=== PATIENT | female | born 1940 | race Caucasian/White ===

== ENCOUNTER 2017-01-31 09:34 | Outpatient (CLI) | payer MEDICARE, BC | END 2017-01-31 09:37 | LOC: D.MAMMO 09:34 | DX: Z12.31 Encounter for screening mammogram for malignant neoplasm of breast (principal) ==

== ENCOUNTER 2017-02-20 22:05 | Inpatient (IN) | payer MEDICARE, BC ==
[~2017-02-20] VITALS: Ht 160 cm; Wt 58.1 kg
[2017-02-20 23:32] LABS: HEMATOCRIT 32.1 % (36.0-48.0); HEMOGLOBIN 10.7 g/dL (12-16); LYMPHOCYTES 6.6 % (15-50); MCH 30.7 pg (26.0-34.0); MCHC 33.3 g/dL (31.0-37.0); MEAN PLATELET VOLUME 9.4 fL (7.4-10.4); NEUTROPHILS 83.4 % (40-80); PLATELET COUNT 237 10x3/uL (130-400); RBC 3.49 10x6/uL (4.00-5.40); RDW 15.6 % (11.5-14.5); WBC 11.8 10x3/uL (4.8-10.8)
[2017-02-20 23:44] LABS: INR 0.95 (0.85-1.17); PROTIME 12.5 SECONDS (11.6-15.0)
[2017-02-20 23:47] LABS: ALBUMIN 3.3 g/dL (3.4-5.0); ANION GAP 11.7 mmol/L (8-16); BILIRUBIN - TOTAL 0.3 mg/dL (0.2-1.3); CALCIUM 8.3 mg/dL (8.5-10.1); CREATININE - SERUM 1.8 mg/dL (0.6-1.3); MAGNESIUM - SERUM 1.6 mg/dL (1.8-2.4); POTASSIUM - SERUM 3.7 mmol/L (3.5-5.1); PROTEIN - SERUM 6.1 g/dL (6.4-8.2)
[2017-02-20 23:58] LABS: APTT 27.1 SECONDS (22.8-39.4)
--- NOTE | 2017-02-21 02:00 | NUR ---
RECIEVED PT FROM ER VIA BED, TRANSFERED WITH BOARD, ASSESSMENT, HISTORY AND MED REC COMPLETED, ORIENTED TO ROOM AND CALL LIGHT, BED LOW, ALARM ON, SR'S UP, CL IN REACH, WILL MONITOR
--- NOTE | 2017-02-21 02:05 | NUR ---
WEDGER INFORMED OF THE NEED FOR BUCKS BOOT TO SET UP ORDERED TRACTION
[2017-02-21] MEDS ORDERED: GLEEVEC100 MG PO (02:08)
[2017-02-21] MEDS ORDERED: BAYER CHEWABLE81 MG PO (02:08)
[2017-02-21] MEDS ORDERED: ZOLOFT50 MG PO (02:09)
[2017-02-21] MEDS ORDERED: PRINIVIL20 MG PO (02:09)
[2017-02-21] MEDS ORDERED: TOPROL XL50 MG PO (02:11)
[2017-02-21] MEDS ORDERED: NITROSTAT0.4 MG SL (02:11)
[2017-02-21] MEDS ORDERED: FOLIC ACID1 MG PO (02:12)
[2017-02-21] MEDS ORDERED: PROTONIX40 MG PO (02:12)
[2017-02-21] MEDS ORDERED: BENADRYL25 MG PO (02:13)
--- NOTE | 2017-02-21 03:00 | NUR ---
RESTING WITH EYES CLOSED, NO DISTRESS NOTED, FALL PRECAUTIONS IN PLACE, CL IN REACH
--- NOTE | 2017-02-21 03:20 | NUR ---
PRN DILAUDID GIVEN FOR C/O HIP PAIN 02/18, PAPI WELL, CL IN REACH
--- NOTE | 2017-02-21 03:35 | NUR ---
5LB BUCKS TRACTION APPLIED PER ORDERS, PAPI WELL, DENIES NEEDS, CL IN REACH
[2017-02-21 04:01] VITALS: BP 158/77; BMI 22.9
[2017-02-21 06:59] LABS: APPEARANCE HAZY (CLEAR); COLOR YELLOW (YELLOW); LEUKOCYTE ESTERASE TRACE (NEGATIVE); PROTEIN NEGATIVE (NEGATIVE)
[2017-02-21 07:00] LABS: BILIRUBIN NEGATIVE (NEGATIVE); GLUCOSE NEGATIVE (NEGATIVE); KETONE NEGATIVE (NEGATIVE); NITRITE POSITIVE (NEGATIVE); UROBILINOGEN NORMAL (NORMAL)
[2017-02-21 07:01] LABS: BACTERIA MANY /hpf (NONE SEEN); EPITHELIAL CELLS 0-5 /hpf (0-5); HYALINE CAST OCC /lpf (NONE SEEN); MUCUS <1+ /lpf (NONE SEEN); RED CELLS - URINE >50 /hpf (0-5)
--- NOTE | 2017-02-21 07:25 | NUR ---
REPORT RECEIVED FROM ICE CREAM FREEZER HELPER NURSE. CALL LIGHT IN REACH.
--- NOTE | 2017-02-21 09:05 | NUR ---
ASSESSMENT COMPLETED. SCD TO RLE. BED ALARM TURNED ON. DILAUDID MAPLE PRODUCTS MAKER INITIATED AND BOLUS ADMINISTERED. WITNESSED PER YU WORLEY. IN ROOM. CALL LIGHT IN REACH. WILL CONTINUE WITH PLAN OF CARE.
[2017-02-21 09:17] VITALS: BP 173/68
--- NOTE | 2017-02-21 10:16 | NUR ---
* Is the patient Alert and Oriented? Yes 0 * How many steps to enter\exit or inside your home? 3 0 * PCP [facility] 0 * [facility]acy [facility] [address] [facility] * Preadmission Environment Home with Family 0 * ADLs Independent 0 * Equipment None 0 * List name and contact numbers for known caregivers / representatives who currently or will assist patient after discharge: DAVID GUERRERO (PARTNER) [phone] 0 * Community resources currently utilized None 0 * Additional services required to return to the preadmission environment? Yes 0 * Can the patient safely return to the preadmission environment? Yes 0 * Has this patient been hospitalized within the prior 30 days at any hospital? No 0 Grand Total: 0 Patient Name: YAEL BAGLEY Admission Status: ER Accout number: [id number] Admission Date: 02-20-2017 : 1940 Admission Diagnosis: Attending: HENRY Current LOS: 1 Anticipated DC Date: Planned Disposition: Primary Insurance: MEDICARE A & B Discharge Planning Comments: CM met with patient and her partner (David Guerrero) and son ( Emre Guerrero) Patient states that she is an independent person who lives at home with the above. Her home is a safe environment to return too, but she feel like she will needs in patient rehab to get stronger before she goes home. She currently does not have any equipment at home and will need a walker. CM will continue to follow and assist as needed. PCP: [facility] ([phone])-Partner Emre Guerrero ([phone]) Son Senior Account Director: Henny Rodriguez
[2017-02-21 10:27] LABS: BASOPHILS 0.1 % (0-2); EOSINOPHILS 1.2 % (0-7); HEMATOCRIT 34.4 % (36.0-48.0); IMMATURE GRANULOCYTES 0.3 % (0-5); MCH 30.3 pg (26.0-34.0); MEAN PLATELET VOLUME 9.2 fL (7.4-10.4); MONOCYTES 7.3 % (2-11); NEUTROPHILS 86.1 % (40-80); PLATELET COUNT 198 10x3/uL (130-400); RBC 3.63 10x6/uL (4.00-5.40); RDW 15.5 % (11.5-14.5); WBC 14.3 10x3/uL (4.8-10.8)
[2017-02-21 10:31] LABS: MCV 94.8 fL (80.0-100.0)
--- NOTE | 2017-02-21 10:42 | NUR ---
Rehab Note- Acute Rehab Prescreen order received. The patient is awaiting surgery at this time. Will follow the patient and plan for [facility] IRF stay when ready to transfer from the acute hospital. Thank you for this referral! Sheryl Bermeo RN Clinical Liaison, [facility] Rehab
[2017-02-21 11:02] VITALS: Ht 160 cm; Wt 58.1 kg
[2017-02-21 11:54] VITALS: BP 148/69
--- NOTE | 2017-02-21 11:59 | NUR ---
AM MEDS ADMINISTERED. CALL LIGHT IN REACH.
--- NOTE | 2017-02-21 13:25 | NUR ---
PATIENT IS LAYING IN BED. DIRECTOR OF REVENUE CYCLE MANAGEMENT IN ROOM PUTTING ON COOK FISH AND CHIPS. PATIENT REQUESTED A CUP OF ICE BUT DENIES FURTHER NEEDS AT THIS TIME. BROUGHT PATIENT A CUP OF ICE. NO SIGNS OF DISTRESS NOTED. AT BEDSIDE. BED IN LOWEST POSITION, CALL LIGHT IN REACH. BED RIALS UP X'S 2.
--- NOTE | 2017-02-21 14:13 | NUR ---
PT IN ROOM TO ADJUST TRACTION WHICH IS ON FLOOR AT THIS TIME.
[2017-02-21 15:31] VITALS: BP 153/76
--- NOTE | 2017-02-21 16:20 | NUR ---
DENIES NEEDS AT THIS TIME. FAMILY IN ROOM. CALL LIGHT IN REACH.
--- NOTE | 2017-02-21 18:13 | NUR ---
NO CHANGES IN INIITAL ASSESSMENT. 5 LBS TRACTION TO LLE AND SCD TO RLE. BED ALARM ON. FAMILY IN ROOM. CALL LIGHT IN REACH. WILL CONTINUE WITH PLAN OF CARE.
[2017-02-21 23:11] VITALS: BP 159/68
[2017-02-22] VITALS: BP 167/76
--- NOTE | 2017-02-22 02:01 | NUR ---
0122) C/O NAUSEA NO EMESIS.ZOFRAN 4MG GIVEN IV ORDERED FOR RELIEF.LEFT LEG REMAINS IN 5LBS. BUCKS TX.SOME SHORTENING AND INTERNAL ROTATION OBSERVED.FOOT PINK AND WARM PEDAL PULSE PRESENT. WILL CONTINUE TO MONITOR FOR ANY CHGES. IN NEUROVASCULAR STATUS AND FOLLOW CURRENT PLAN OF CARE
[2017-02-22 04:00] VITALS: BP 158/70
[2017-02-22 05:06] LABS: BASOPHILS 0.1 % (0-2); HEMATOCRIT 35.3 % (36.0-48.0); HEMOGLOBIN 11.4 g/dL (12-16); IMMATURE GRANULOCYTES 0.4 % (0-5); MCH 30.4 pg (26.0-34.0); MCHC 32.3 g/dL (31.0-37.0); MCV 94.1 fL (80.0-100.0); MEAN PLATELET VOLUME 10.6 fL (7.4-10.4); MONOCYTES 4.9 % (2-11); NEUTROPHILS 90.6 % (40-80); RBC 3.75 10x6/uL (4.00-5.40); RDW 15.4 % (11.5-14.5); WBC 17.8 10x3/uL (4.8-10.8)
[2017-02-22 05:26] LABS: PLATELET COUNT 242 10x3/uL (130-400)
[2017-02-22 05:49] LABS: ALBUMIN 2.9 g/dL (3.4-5.0); BILIRUBIN - TOTAL 0.5 mg/dL (0.2-1.3); CALCIUM 7.9 mg/dL (8.5-10.1); CREATININE - SERUM 1.5 mg/dL (0.6-1.3); PROTEIN - SERUM 6.1 g/dL (6.4-8.2)
--- NOTE | 2017-02-22 07:20 | NUR ---
REPORT RECEIVED FROM MIDDLE SCHOOL TEACHER NURSE. CALL LIGHT IN REACH.
[2017-02-22 07:58] VITALS: BP 166/64
--- NOTE | 2017-02-22 08:02 | NUR ---
ASSESSMENT COMPLETED. ZOFRAN IVP PER C/O NAUSEA. AM MEDS ADMINISTERED. SCD TO RLE. 5 LBS BEY'S TRACTION TO LLE. BED ALARM ON. TAKEN OFF OF BEDPAN AND CLEANED UP. NORMAL BM NOTED. KATHLEEN PASTRANA, IN ROOM TO SPEAK WITH PATIENT. CALL LIGHT IN REACH. WILL CONTINUE WITH PLAN OF CARE.
--- NOTE | 2017-02-22 09:11 | NUR ---
CHRISTOPHERHIN IVPB PER ORDER. DENIES NEEDS AT THIS TIME. CALL LIGHT IN REACH.
--- NOTE | 2017-02-22 11:11 | NUR ---
URINE SAMPLE COLLECTED FROM BENNETT AND SENT TO LAB FOR TESTING.
[2017-02-22 12:06] VITALS: BP 144/72
--- NOTE | 2017-02-22 13:00 | NUR ---
DR. PERRY AND CASINO CHANGE ATTENDANT IN ROOM TO SEE PATIENT.
--- NOTE | 2017-02-22 14:10 | NUR ---
LEVAQUIN 500 MG IVPB. CALL LIGHT IN REACH.
--- NOTE | 2017-02-22 15:15 | NUR ---
PATIENT ALERT IN BED. NO SIGNS OF DISTRESS NOTED. LUCI, NURSE AID AT BEDSIDE. SIDE RAILS UP X2. BED IN LOW POSITION. CALL LIGHT IN REACH.
[2017-02-22 15:36] VITALS: BP 172/87
--- NOTE | 2017-02-22 15:52 | NUR ---
RESTING WITH EYES CLOSED. RESP EVEN AND UNLABORED. CALL LIGHT IN REACH.
--- NOTE | 2017-02-22 17:35 | NUR ---
CONSENT FORMS SIGNED AND WITNESSED.
--- NOTE | 2017-02-22 18:10 | NUR ---
NO CHANGES IN INITIAL ASSESSMENT. CALL LIGHT IN REACH. SCDs ON. BED ALARM ON. VISITORS AT BEDSIDE. WILL CONTINUE WITH PLAN OF CARE.
--- NOTE | 2017-02-22 19:00 | NUR ---
PATIENT IN BED WATCHING TV. HOB 30 DEGREES. AAOX4. RR EVEN AND UNLABORED. 0 S/S OF DISTRESS. STATES PAIN IS A 3/10, BUT SHE DOES NOT WANT TO USE THE PAIN MEDICATION BECAUSE IT MAKES HER NAUSEATED. IV TO LEFT AC PATENT WITH NO REDNESS OR SWELLING. BENNETT SECURED WITH STATLOCK AND DRAINING TO GRAVITY. BEY'S TRACTION TO LLE AND SCD TO RLE. TELEMETRY ON. BED ALARM ON. SISTER AT BEDSIDE. SRX2. BED LOW. CALL LIGHT WITHIN REACH.
[2017-02-22 20:00] VITALS: BP 176/76
--- NOTE | 2017-02-22 21:00 | NUR ---
PATIENT'S BP 176/76. NO PRN MEDS OR BP MEDS UNTIL AM. SPOKE WITH MAYE MALDONADO. 10 MG IV APRESOLINE GIVEN PER TELEPHONE ORDER.
--- NOTE | 2017-02-22 22:00 | NUR ---
PATIENT VERY NAUSEATED AND FEELS VERY HOT. FACE IS FLUSHED. SHE IS CONCERNED IT WAS THE APRESOLINE. SHE STATED SHE IS ALLERGIC TO AMLODIPINE. ZOFRAN GIVEN PER ORDER. WILL CONTINUE TO MONITOR AND PASS ON IN REPORT.
[2017-02-23] VITALS: BP 138/65
--- NOTE | 2017-02-23 03:00 | NUR ---
NAUSEA APPEARS TO HAVE RESOLVED. PATIENT SLEEPING WITH NO DISTRESS NOTED.
[2017-02-23 04:00] VITALS: BP 152/57
[2017-02-23 05:46] LABS: BASOPHILS 0.1 % (0-2); EOSINOPHILS 1.3 % (0-7); HEMATOCRIT 32.8 % (36.0-48.0); HEMOGLOBIN 10.8 g/dL (12-16); IMMATURE GRANULOCYTES 0.3 % (0-5); LYMPHOCYTES 5.1 % (15-50); MCH 30.3 pg (26.0-34.0); MCHC 32.9 g/dL (31.0-37.0); MEAN PLATELET VOLUME 9.9 fL (7.4-10.4); MONOCYTES 7.9 % (2-11); NEUTROPHILS 85.3 % (40-80); PLATELET COUNT 208 10x3/uL (130-400); RBC 3.56 10x6/uL (4.00-5.40); RDW 15.3 % (11.5-14.5); WBC 14.3 10x3/uL (4.8-10.8)
[2017-02-23 05:51] LABS: MCV 92.1 fL (80.0-100.0)
--- NOTE | 2017-02-23 06:05 | NUR ---
PATIENT STATES THAT SHE IS STILL NAUSEATED. ZOFRAN GIVEN. ATTEMPTED TO TREAT POTASSIUM WITH RIDER PER PROTOCOL BUT IT BURNT THE PATIENT TOO BADLY. WILL TREAT PO AFTER PATIENT'S PROCEDURE.
[2017-02-23 06:32] LABS: ALBUMIN 2.6 g/dL (3.4-5.0); ANION GAP 11.8 mmol/L (8-16); BILIRUBIN - TOTAL 0.6 mg/dL (0.2-1.3); CALCIUM 8.1 mg/dL (8.5-10.1); CARBON DIOXIDE 27.6 mmol/L (21.0-32.0); CREATININE - SERUM 1.5 mg/dL (0.6-1.3); POTASSIUM - SERUM 3.4 mmol/L (3.5-5.1); PROTEIN - SERUM 5.8 g/dL (6.4-8.2)
[2017-02-23 07:40] VITALS: BP 184/79
--- NOTE | 2017-02-23 07:45 | NUR ---
PT ASSESSEMNT COMPLETE AWAKE AND ALERT ORINETD X 3 LUNGS CLEAR BILAT. PT WITH BUCKS TRACTION NOTED TO LEFT LEG. NPO FOR BIPOLAR HIP TODAY WITH DR FLORES.
--- NOTE | 2017-02-23 08:49 | CN ---
PATIENT NAME:YAEL BRIDGES MEDICAL RECORD: [id number] : 44 LOCATION:[facility] ADMIT DATE: 02/20/17 ACCOUNT: [id number] CONSULTING PHYSICIAN: ELLI FELIPE MD REFERRING PHYSICIAN: TESSA PERRY MD DATE OF CONSULTATION: 02/21/2017 Cardiology Consultation DIAGNOSES: 1. Preoperative evaluation for hip fracture. 2. Coronary artery disease. 3. Status post coronary bypass graft surgery. 4. Hypertension. 5. Gastroesophageal reflux disease. HISTORY OF PRESENT ILLNESS: Mrs. Bridges relocated from [place]. She does have a history of coronary bypass graft surgery. No history of any recent angina. She tripped and has a left hip fracture. Her EKG is normal. PHYSICAL EXAMINATION: GENERAL APPEARANCE: Well-nourished, well-developed, appears stated age. Level of distress, comfortable. PSYCHIATRIC: Mental status, alert, normal affect. Orientation, oriented to time, place and person. EYES: Lids and conjunctiva, noninjected. No discharge, no pallor. ENT: Lips, teeth, gums, normal dentition. Oropharynx, no cyanosis, no pallor. NECK: Carotid arteries, bilateral normal upstroke, no bruits, no thrills. JUGULAR VEINS: No jugular venous pressure or distention. CERVICAL LYMPH NODES: Nontender, nonenlarged. THYROID: Not enlarged. Nontender. No nodules. LUNGS: Respiratory effort, unlabored. CHEST: Normal curvature. No thoracic deformity. No chest wall tenderness. Percussion, resonant. Auscultation, clear. No wheezes, no rales, no rhonchi. CARDIOVASCULAR: Precordial exam, nondisplaced. No heaves or pericardial thrills. Rate and rhythm, regular. Heart sounds, normal S1, normal S2. No S3, no gallop, no rub. Systolic murmur, not heard. Diastolic murmur, not heard. EXTREMITIES: No cyanosis, no edema. Peripheral pulses, full and equal in all extremities, except as noted. No bruits appreciated. ABDOMEN: Soft, nondistended. Normal aorta. No bruit. Nontender. No masses. Liver, nontender, no hepatomegaly. Spleen, nontender, no splenomegaly. MUSCULOSKELETAL: No joint tenderness. No joint swelling. No erythema. NEUROLOGICAL: Normal gait, normal strength, normal tone. SKIN: Warm and dry. REVIEW OF SYSTEMS: The patient reports easy bruising but reports no swollen glands. The patient reports no fever, no night sweats, no significant weight gain, no significant weight loss. No significant exercise tolerance. The patient reports no dry eyes, no irritation, no vision change. Patient reports no difficulty hearing and no ear pain. Patient reports no frequent nose bleeds or nose and sinus problems. Patient reports on arm pain on exertion. No shortness of breath while lying down. No history of heart murmur. Patient reports no cough, no wheezing or coughing up blood. Patient reports no abdominal pain, no vomiting. Normal appetite. No diarrhea and not vomiting blood. No nausea and no constipation. Patient reports no incontinence. No CONSULT REPORT [id number] YAEL BRIDGES difficulty urinating. No hematuria. No increased frequency. Patient reports no muscle aches. No weakness, no arthralgias, no back pain. No swelling of the extremities. Patient reports no abnormal mole, no jaundice, no rashes. Reports no loss of consciousness. No weakness and no numbness. No seizures, dizziness, or headaches. The patient reports no depression, no sleep disturbance, feeling safe in a relationship and no alcohol abuse. Patient reports on fatigue. Reports no runny nose or sinus pressure. No itching, no hives, and no frequent sneezing. OVERALL IMPRESSION: Coronary artery disease, but stable, no recurrent anginal symptomatology. Normal EKG. Good heart rate and blood pressure control on Toprol, lisinopril. No cardiac workup is necessary prior to surgery. Proceed with surgery at low cardiac risk. TRANSINT:[id number] Voice Confirmation ID: [id number] DOCUMENT ID: [id number] ELLI FELIPE MD at 0849 CC: [id number] DICTATION DATE: 02/21/17 1201 SERVICE CAR OPERATOR: 02/21/17 2221 ADM IN [id number] [place] [address]
--- NOTE | 2017-02-23 09:33 | NUR ---
Rehab will continue to follow this patient after surgery. Fatemeh Liao RN Clinical Liaison, Rehab
[2017-02-23 12:24] VITALS: BP 169/81
--- NOTE | 2017-02-23 12:46 | NUR ---
PT TO OR AT THIS TIME VIA BED WITH OR TRANSPORT TEAM. PREOPPED PER ORDERS.
--- NOTE | 2017-02-23 12:48 | NUR ---
NUTRITION MONITORING & EVAL CHART REVIEWED. NURSING REPORTS PT OOR TO SURGERY. WILL PROVIDE DIET WHEN RESUMED, MONITOR PO INTAKE. RD FOLLOWING
[2017-02-23 15:33] VITALS: BP 135/74
--- NOTE | 2017-02-23 16:00 | NUR ---
PT RETURNED TO ROOM 2213 FROM RECOVERY ROOM AT THIS TIME BEY TRACTION OFF. PT AWAKE AND ALERT ORIENTED X 3 LUNGS CLEAR. FAMILY AT SIDE PT DENIES PAIN AT THIS TIME. VITAL SIGNS WITH IN NORMAL LIMITS.
--- NOTE | 2017-02-23 17:47 | NUR ---
OT NOTE: MET WITH PT THIS EVENING FOLLOWING SURGERY. PT REPORTED THAT SHE WAS DOING WELL. DISCUSSED THERAPY AND CONTINUED NEED FOLLOWING DC. PT REPORTS THAT SHE DOES NOT WANT IP THERAPY AND WOULD RATHER GO HOME. WILL RE ASSESS TOMORROW..THANK YOU, DENISHA VALDOVINOS,OTR/L
[2017-02-23 19:00] VITALS: BP 97/54
--- NOTE | 2017-02-23 19:00 | NUR ---
PATIENT RESTING WITH EYES CLOSED. AROUSES TO VOICE. RR EVEN AND UNLABORED. 0 S/S OF DISTRESS. STATES PAIN IS A 2/10. IV TO LEFT FA PATENT WITH NO REDNESS OR SWELLING. DRESSING TO LEFT HIP CDI WITH ICE. BENNETT SECURED WITH STATLOCK AND DRAINING TO GRAVITY. TELEMETRY ON. SCD'S ON. B/A ON. SISTER AT BEDSIDE. SRX2. BED LOW. CALL LIGHT WITHIN REACH.
--- NOTE | 2017-02-23 19:15 | NUR ---
REMAINS WITHOUT NEEDS.CALL LIGHT IN REACH
--- NOTE | 2017-02-23 20:40 | NUR ---
NIGHTTIME MEDICATION ADMINISTERED. PO MAG GIVEN PER PROTOCOL. ATTEMPTED TO HAVE PATIENT TAKE PO KCL BUT SHE STATED SHE WOULD RATHER TAKE IT LATER.
[2017-02-24] VITALS: BP 109/53
--- NOTE | 2017-02-24 02:45 | NUR ---
SECOND DOSE MAG GIVEN PER PROTOCOL. ATTEMPTED TO GET PATIENT TO TAKE PO KCL AGAIN BECAUSE SHE SAID THE IV MILLER TOO BADLY, BUT SHE STATED THAT SHE WOULD "RATHER NOT TAKE IT."
[2017-02-24 04:00] VITALS: BP 130/63
[2017-02-24 05:21] LABS: BASOPHILS 0.1 % (0-2); EOSINOPHILS 1.1 % (0-7); IMMATURE GRANULOCYTES 0.4 % (0-5); LYMPHOCYTES 5.4 % (15-50); MCH 29.8 pg (26.0-34.0); MCV 93.1 fL (80.0-100.0); MEAN PLATELET VOLUME 10.1 fL (7.4-10.4); MONOCYTES 10.3 % (2-11); NEUTROPHILS 82.7 % (40-80); PLATELET COUNT 183 10x3/uL (130-400); RDW 15.5 % (11.5-14.5); WBC 16.5 10x3/uL (4.8-10.8)
[2017-02-24 05:27] LABS: HEMATOCRIT 22.8 % (36.0-48.0); HEMOGLOBIN 7.3 g/dL (12-16); RBC 2.45 10x6/uL (4.00-5.40)
[2017-02-24 05:40] LABS: ALBUMIN 2.1 g/dL (3.4-5.0); ANION GAP 10.6 mmol/L (8-16); BILIRUBIN - TOTAL 0.4 mg/dL (0.2-1.3); CALCIUM 7.6 mg/dL (8.5-10.1); CREATININE - SERUM 1.6 mg/dL (0.6-1.3); MAGNESIUM - SERUM 1.1 mg/dL (1.8-2.4); POTASSIUM - SERUM 3.6 mmol/L (3.5-5.1); PROTEIN - SERUM 4.8 g/dL (6.4-8.2)
--- NOTE | 2017-02-24 07:30 | NUR ---
PT ASSESSMENT COMPLETE DENIES PAIN OR DISCOMFORT. PT AWAKE AND ALERT DRESSING INTACT TO LEFT HIP BENNETT PATENT TO CLEAR YELLOW URINE PER GRAVITY FLOW. CALL LIGHT IN REACH CRITICAL LAB VALUES WITH NEW ORDER TO TRANSFUSE 2 UNITS PRBCS.
[2017-02-24 08:00] VITALS: BP 120/50
[2017-02-24 08:44] LABS: HEMATOCRIT 22.5 % (36.0-48.0)
[2017-02-24 08:47] LABS: HEMOGLOBIN 7.3 g/dL (12-16)
[2017-02-24 11:03] VITALS: BP 108/45
--- NOTE | 2017-02-24 12:13 | NUR ---
Rehab Note- patient had surgery on 02/23, will plan for admit to [facility] IRF on Monday02/26/17 if the physician is ready for the patient to discharge from the acute hospital. Thank you for this refferal! Will continue to follow at this time. Sheryl Bermeo RN Clinical Liaison, [facility] Rehab
--- NOTE | 2017-02-24 12:56 | NUR ---
UNIT #1 OF 2 OF PRBCS INIATED AT THIS TIME PER VIDEOTAPE RECORDING ENGINEER. VS WNL NO DISTRESS NOTED WILL MONITOR PER PROTOCOL ATTEMPT X 1 FOR 2ND PIV SITE FOR HOUSEKEEPER SUPERVISOR AND MAINT IVF UNSUCESSFUL TO RIGHT HAND. NO HEMATOMA NOTED.
--- NOTE | 2017-02-24 13:05 | NUR ---
ENTERED PTS ROOM AT THIS TIME, PT SITTING UP IN BED WITH NO COMPLAINTS OF PAIN OR DISCOMFORT AT THIS TIME. FAMILY AT BEDSIDE, BED IN LOW POSITION AND CALL LIGHT WITHIN REACH. WILL CONTINUE TO MONITOR.
[2017-02-24 15:01] VITALS: BP 163/60
--- NOTE | 2017-02-24 15:24 | OP ---
PATIENT NAME: YAEL BAGLEY MEDICAL RECORD: [id number] :42 LOCATION:D[facility] ADMISSION DATE:02/20/17 SURGEON: LOPEZ FLORES MD DATE OF OPERATION: 02/23/2017 PREOPERATIVE DIAGNOSIS: Displaced left femoral neck fracture. POSTOPERATIVE DIAGNOSIS: Displaced left femoral neck fracture. PROCEDURE: Bipolar endoprosthesis for displaced left femoral neck fracture. SURGEON: Lopez Flores MD ANESTHESIA: General. INTRAOPERATIVE COMPLICATIONS: None. SUMMARY OF PATHOLOGIC FINDINGS: The patient was indeed found to have a displaced femoral neck fracture with profound osteoporosis. OPERATIVE SUMMARY IN DETAIL: After obtaining the appropriate preoperative orthopedic surgery consent as well as anesthetic consultation, evaluation and clearance, the patient was brought to the operating room and placed on the operating table in supine position. After adequate spinal anesthesia was administered, the patient was placed in a right lateral decubitus position. All pressure points were well padded to include down leg peroneal pad as well as axillary roll. The patient was held firmly to the operating table using the vacuum pack suction system. Left lower extremity and hip were then prepped and draped in a routine sterile fashion. Curvilinear incision was made over the greater trochanter, taken down to the level of the IT band, which was split in line with fibers of the IT band to reveal gluteus medius minimus attached to the greater trochanter. These were reflected anteriorly and saved for later repair. The hip capsule was split in a T-type fashion and likewise saved for later reapproximation. Fracture hematoma was noted. The femoral head was extracted from the acetabulum and femoral neck cut was made using the femoral neck cutting guide for the Accolade system. The acetabulum was cleared of all fragmentation and then attention was turned to the proximal femur. Serial and sequential reaming and broaching was done for a size 6 Accolade II TMZF coated stem. This was put into place and then trials were undertaken and it was felt that the standard was the most appropriate. The standard 26 head was put in with a 48-mm bipolar head. This was tamped into place with the Figueroa taper, reduced, taken through range of motion and found to be excellent. Intraoperative radiograph showed good position and placement of the components. Wound was copiously irrigated and the hip capsule was closed with #2 Ethibond. This was followed by reapproximation of the gluteus medius minimus back to the greater trochanter in a transosseous fashion using #5 Ethibond and #5 Ethibond likewise was used to close the IT band, which was closed in its entirety, followed by #1 Vicryl, 2-0 Vicryl and skin tamy. Sterile dressings were applied. The patient was then taken to the recovery room in stable condition. All final needle and sponge counts were correct. TRANSINT:[id number] Voice Confirmation ID: [id number] DOCUMENT ID: [id number] OPERATIVE REPORT [id number] YAEL BAGLEY MD, LOPEZ PENNY at 1524 CC: [id number] DICTATION DATE: 02/23/17 1438 BOILER/CHILLER TECHNICIAN: 02/24/17 0226 [facility] IN [facility] [address] [place] [address]
--- NOTE | 2017-02-24 22:10 | NUR ---
PATIENT'S BLOOD TRANSFUSION COMPLETE. PATIENT TOLERATED WELL AND VITAL SIGNS ARE WNL. PATIENT HAS GUEST AT BEDSIDE. BED IN LOWEST POSITION, CALL LIGHT WITHIN REACH, AND BED ALARM ON. ENCOURAGED THE PATIENT TO CALL IF SHE HAS NEEDS.
[2017-02-25 00:11] VITALS: BP 142/64
[2017-02-25 02:07] LABS: HEMATOCRIT 28.8 % (36.0-48.0); HEMOGLOBIN 9.8 g/dL (12-16)
[2017-02-25 04:00] VITALS: BP 127/74
[2017-02-25 05:36] LABS: BASOPHILS 0.1 % (0-2); EOSINOPHILS 3.3 % (0-7); HEMATOCRIT 29.5 % (36.0-48.0); IMMATURE GRANULOCYTES 0.4 % (0-5); LYMPHOCYTES 4.8 % (15-50); MCH 30.5 pg (26.0-34.0); MCHC 33.9 g/dL (31.0-37.0); MEAN PLATELET VOLUME 10.2 fL (7.4-10.4); MONOCYTES 11.6 % (2-11); NEUTROPHILS 79.8 % (40-80); PLATELET COUNT 178 10x3/uL (130-400); RDW 15.2 % (11.5-14.5); WBC 16.9 10x3/uL (4.8-10.8)
[2017-02-25 05:37] LABS: MCV 89.9 fL (80.0-100.0); RBC 3.28 10x6/uL (4.00-5.40)
[2017-02-25 05:56] LABS: ALBUMIN 2.1 g/dL (3.4-5.0); ANION GAP 10.8 mmol/L (8-16); BILIRUBIN - TOTAL 0.8 mg/dL (0.2-1.3); CALCIUM 7.5 mg/dL (8.5-10.1); CARBON DIOXIDE 26.7 mmol/L (21.0-32.0); CREATININE - SERUM 1.6 mg/dL (0.6-1.3); POTASSIUM - SERUM 3.5 mmol/L (3.5-5.1); PROTEIN - SERUM 5.1 g/dL (6.4-8.2)
--- NOTE | 2017-02-25 07:50 | NUR ---
ASSESSMENT COMPLETE. IV TO L HAND PATENT. NS INFUSING AT 100 CC/HR VIA PUMP. OFFSET PRINTING PRESSMEN DEMEROL 10-10-200 IN USE FOR PAIN CONTROL. SL TO L FA. DRESSING TO L HIP C/D/I. SCDS IN USE TO BILAT LEGS. BENNETT PATENT DRAINING YELLOW URINE. SOLUTIONS SALES EXECUTIVE SHOWING SR 77 PER TECH.
[2017-02-25 08:59] VITALS: BP 150/62
--- NOTE | 2017-02-25 12:00 | NUR ---
SITTING UP IN CHAIR VISITING WITH FAMILY.
[2017-02-25] MEDS ORDERED: ELIQUIS2.5 MG PO (12:04)
[2017-02-25 13:13] VITALS: BP 120/56
--- NOTE | 2017-02-25 15:00 | NUR ---
RESTING QUIETLY IN BED WITH EYES CLOSED. RESP EVEN,NONLABORED.
[2017-02-25 17:43] VITALS: BP 144/64
--- NOTE | 2017-02-25 17:54 | NUR ---
VISITING WITH FAMILY. DENIES ANY NEEDS AT PRESENT.
[2017-02-25 20:00] VITALS: BP 140/65
--- NOTE | 2017-02-25 20:30 | NUR ---
PATIENT IS RESTING IN BED WITH GUEST AT BEDSIDE AND DENIES NEEDS AT THIS TIME. BED IN LOWEST POSITION, CALL LIGHT WITHIN REACH, AND BED ALARM ON. ENCOURAGED THE PATIENT TO CALL IF SHE HAS NEEDS.
[2017-02-26] VITALS: BP 103/61
[2017-02-26 04:00] VITALS: BP 146/62
[2017-02-26 07:12] LABS: BASOPHILS 0.1 % (0-2); EOSINOPHILS 2.1 % (0-7); HEMATOCRIT 27.8 % (36.0-48.0); HEMOGLOBIN 9.4 g/dL (12-16); IMMATURE GRANULOCYTES 0.5 % (0-5); LYMPHOCYTES 4.2 % (15-50); MCH 30.7 pg (26.0-34.0); MCHC 33.8 g/dL (31.0-37.0); MCV 90.8 fL (80.0-100.0); MEAN PLATELET VOLUME 9.6 fL (7.4-10.4); MONOCYTES 9.8 % (2-11); NEUTROPHILS 83.3 % (40-80); PLATELET COUNT 180 10x3/uL (130-400); RBC 3.06 10x6/uL (4.00-5.40); WBC 15.4 10x3/uL (4.8-10.8)
--- NOTE | 2017-02-26 07:30 | NUR ---
ASSESSMENT COMPLETE. IV TO L HAND PATENT. NS INFUSING AT 100 CC/HR VIA PUMP. HOME HEALTH ADMINISTRATOR DEMEROL 10-10-200 IN USE FOR PAIN CONTROL. DRESSING TO LEFT HIP C/D/I. BENNETT PATENT DRAINING YELLOW URINE. BED ALARM IN USE. SCDS IN USE TO BILAT LEGS. PREPARATION SUPERVISOR SHOWING SR 66 PER TECH.
[2017-02-26 07:32] LABS: ALBUMIN 1.8 g/dL (3.4-5.0); ANION GAP 10.7 mmol/L (8-16); BILIRUBIN - TOTAL 0.61 mg/dL (0.2-1.3); CALCIUM 8.1 mg/dL (8.5-10.1); CARBON DIOXIDE 27.9 mmol/L (21.0-32.0); CREATININE - SERUM 1.5 mg/dL (0.6-1.3); POTASSIUM - SERUM 3.6 mmol/L (3.5-5.1)
[2017-02-26 09:02] VITALS: BP 129/61
--- NOTE | 2017-02-26 09:30 | NUR ---
COMPLAINING OF INCREASED INCISIONAL PAIN. HOURLY SIGN LANGUAGE INTERPRETER BOLUSED WITH 25 MG.
--- NOTE | 2017-02-26 09:50 | NUR ---
RESTING QUIETLY WITH EYES CLOSED. RESP EVEN,NONLABORED.
--- NOTE | 2017-02-26 11:30 | NUR ---
RESTING QUIETLY ON LEFT SIDE. VISITING WITH . DENIES ANY NEEDS AT PRESENT.
[2017-02-26 12:44] VITALS: BP 130/51
--- NOTE | 2017-02-26 13:20 | NUR ---
NO CHANGES NOTED AT THIS TIME.
[2017-02-26] MEDS ORDERED: OXYCODONE HCL10 MG PO (13:56)
--- NOTE | 2017-02-26 15:21 | NUR ---
REPORT CALLED TO SCOTT HOFF LPN ON REHAB.
--- NOTE | 2017-02-26 16:00 | NUR ---
BENNETT CATHETER DC'D. CATHETER TIP INTACT.
--- NOTE | 2017-02-26 16:12 | NUR ---
PATIENT FOR DISCHARGE TO [facility] TODAY.
--- NOTE | 2017-02-26 16:30 | NUR ---
DC'D TO REHAB. TRANSFERRED TO ROOM 1118 A VIA BED WITH BELONGINGS.
== END 2017-02-26 16:20 | DRG 470 ==
LOC: D.ER 22:05 → D.MS 23:33
PROVIDERS: Emergency Medicine; Orthopaedic Surgery; ADMIT Family Medicine Adult Medicine
PROC: 0SRS0JZ Replacement of Left Hip Joint, Femoral Surface with Synthetic Substitute, Open Approach (ICD-10-PCS; principal; 2017-02-23 14:00)
DX: S72.012A Unspecified intracapsular fracture of left femur, initial encounter for closed fracture (principal); N39.0 Urinary tract infection, site not specified; C92.10 Chronic myeloid leukemia, BCR/ABL-positive, not having achieved remission; W01.0XXA Fall on same level from slipping, tripping and stumbling without subsequent striking against object, initial encounter; I25.10 Atherosclerotic heart disease of native coronary artery without angina pectoris; I10 Essential (primary) hypertension; Z95.1 Presence of aortocoronary bypass graft; K21.9 Gastro-esophageal reflux disease without esophagitis; F32.9 Major depressive disorder, single episode, unspecified

== ENCOUNTER 2017-02-26 13:48 | Inpatient (IN) | payer MEDICARE, BC ==
[~2017-02-26] VITALS: Ht 160 cm; Wt 58.5 kg
[~2017-02-26 13:48] MED LIST: BAYER CHEWABLE81 MG PO; BENADRYL25 MG PO; ELIQUIS2.5 MG PO; FOLIC ACID1 MG PO; GLEEVEC100 MG PO; NITROSTAT0.4 MG SL; PRINIVIL20 MG PO; PROTONIX40 MG PO; TOPROL XL50 MG PO; ZOLOFT50 MG PO
[2017-02-26] MEDS ORDERED: OXYCODONE HCL10 MG PO (13:56)
--- NOTE | 2017-02-26 16:40 | NUR ---
RECIEVED ON FLOOR/BED TO ROOM 1118A.TRANSFERRED FROM BED TO WC THEN TO BED.DRSG TO LEFT HIP IN PLACE BUT [facility] DRSG FILLED WITH OLD BROWISNRED BLOOD.WILL REPLACE WITH NEW.ORIENTED TO ROOM AND SURROUNDINGS.CL IN REACH.
[2017-02-26 18:39] VITALS: BP 144/55; BMI 22.9
--- NOTE | 2017-02-26 19:40 | NUR ---
PT IN BED WITH HOB UP FOR COMFORT. VISITORS IN ROOM. LEFT FA AND LEFT WRIST SALINE LOC. SCD'S. BED ALARM ON. BED IN LOWEST POSITION AND CALL LIGHT WITHIN REACH.
[2017-02-26 20:55] VITALS: BP 143/63
--- NOTE | 2017-02-26 23:40 | NUR ---
PT IN BED WITH HOB UP FOR COMFORT. RESTING QUIETLY. BED IN LOWEST POSITION AND CALL LIGHT WITHIN REACH.
--- NOTE | 2017-02-27 03:40 | NUR ---
PT IN BED WITH HOB UP FOR COMFORT. EYES CLOSED. CHEST RISING AND FALLING. BED IN LOWEST POSITION AND CALL LIGHT WITHIN REACH.
--- NOTE | 2017-02-27 06:13 | NUR ---
d/c left fa and left wrist iv's. pt tolerated procedure well.
--- NOTE | 2017-02-27 07:14 | NUR ---
RESTING QUIETLY IN BED CALL LIGHT IN REACH
[2017-02-27 07:15] LABS: BASOPHILS 0.1 % (0-2); EOSINOPHILS 1.4 % (0-7); HEMATOCRIT 28.9 % (36.0-48.0); HEMOGLOBIN 9.5 g/dL (12-16); IMMATURE GRANULOCYTES 0.7 % (0-5); LYMPHOCYTES 3.6 % (15-50); MCH 30.4 pg (26.0-34.0); MCHC 32.9 g/dL (31.0-37.0); MCV 92.3 fL (80.0-100.0); MEAN PLATELET VOLUME 9.7 fL (7.4-10.4); MONOCYTES 10.8 % (2-11); NEUTROPHILS 83.4 % (40-80); PLATELET COUNT 203 10x3/uL (130-400); RBC 3.13 10x6/uL (4.00-5.40); RDW 14.9 % (11.5-14.5); WBC 17.7 10x3/uL (4.8-10.8)
[2017-02-27 07:28] LABS: ANION GAP 10.6 mmol/L (8-16); CALCIUM 8.3 mg/dL (8.5-10.1); CARBON DIOXIDE 27.1 mmol/L (21.0-32.0); CREATININE - SERUM 1.4 mg/dL (0.6-1.3); POTASSIUM - SERUM 3.7 mmol/L (3.5-5.1)
[2017-02-27 12:24] VITALS: Ht 160 cm; Wt 58.5 kg
[2017-02-27 19:00] VITALS: BP 119/65
--- NOTE | 2017-02-27 20:00 | NUR ---
PT IN BED WITH HOB UP FOR COMFORT. WATCHING TV. SCD'S. NO O2. NO IV. BED ALARM ON. BED IN LOWEST POSITION AND CALL LIGHT WIHTIN REACH.
--- NOTE | 2017-02-27 20:15 | NUR ---
LEFT HIP DRESSING SOILED. DRESSING CHANGED. PADDED WITH 4X4'S, ABD PAD, AND TAPPED WITH MEDIPORE. PT TOLERATED PROCEDURE WELL.
--- NOTE | 2017-02-28 | NUR ---
PT IN BED WITH HOB UP FOR COMFORT. EYES CLOSED. CHEST RISING AND FALLING. BED IN LOWEST POSITION AND CALL LIGHT WITHIN REACH.
--- NOTE | 2017-02-28 01:30 | NUR ---
PT RESTING QUIETLY QUIETLY, NO S/S OF ACUTE DISTRESS.
--- NOTE | 2017-02-28 04:00 | NUR ---
PT LYING IN BED. EYES CLOSED. RESPIRATIONS EVEN AND UNLABORED. BED IN LOWEST POSITION AND CALL LIGHT WITHIN REACH.
--- NOTE | 2017-02-28 11:52 | NUR ---
PATIENT ADMITTED TO REHAB FROM ACUTE FLOOR, DR. PITTMAN IS HER PCP. SHE HAS NO DME AT HOME AND SHE THINKS SHE MIGHT NEED A ROLLING WALKER AT DISCHARGE. SHE IS [facility] [address] FOR HER PHARMACY NEEDS. HER PARTNER WILL ASSIT HER AT TIME OD DISCHARGE. SHE PLANS ON RETURNING HOME. WILL CONTINUE TO FOLLOW WITH PATIENT
[2017-02-28 12:51] VITALS: BP 131/71
--- NOTE | 2017-02-28 19:34 | NUR ---
RESTING QUIETLY IN BED CALL LIGHT IN REACH
--- NOTE | 2017-02-28 19:50 | NUR ---
PT. IN BED WITH HOB UP FOR COMFORT WITH EYES CLOSED AND RESP. DEEP AND EVEN. PT. AWAKENS EASILY FOR ASSESSMENT. NO VOICED NEEDS AT THIS TIME AND HER CALL LIGHT IS WITHIN REACH.
[2017-02-28 20:15] VITALS: BP 132/43
--- NOTE | 2017-02-28 23:06 | NUR ---
PT. IN BED WITH EYES CLOSED AND RESP. EVEN. PT. AWAKENS EASILY BUT HAS NO VOICED NEEDS. CALL LIGHT WITHIN REACH. SCD'S ON WITHOUT PROBLEMS.
--- NOTE | 2017-03-01 00:35 | NUR ---
PT. ASSISTED TO BR TO URINATE. ASSISTED BACK TO BED AND POSITIONED TO COMFORT. PT. REQUESTED INCISIONAL CARE BE PERFORMED. REMOVED OLD DRESSING AND ALL 4X4'S HAD SEROSANGUINEOUS DRAINAGE ON THEM. AREA CLEANSED AND PADDED WITH 4X4S AND ALL SECURED WITH A BORDER DRESSING AND ADDITIONAL MEDIPORE TAPE TO EDGE. PT. TOLERATED PROCEDURE WITHOUT ANY C/O. PILLOWS POSITIONED UNDER BLE'S AND SCD'S PLACED. CALL LIGHT REMAINS WITHIN REACH.
--- NOTE | 2017-03-01 03:01 | NUR ---
PT. IN BED WITH HOB UP FOR COMFORT WITH BLE'S ELEVATED ON PILLOWS TO HELP WITH EDEMA. SCD'S ON WITHOUT PROBLEMS. EYES CLOSED AND RESP. DEEP AND EVEN. CALL LIGHT WITHIN REACH.
--- NOTE | 2017-03-01 06:10 | NUR ---
PT. IN BED WITH HOB UP FOR COMFORT WITH EYES CLOSED AND RESP. EVEN. PT. AWAKEND EASILY FOR AM MEDS. PT. KEEPING LE'S ELEVATED AND SCD'S ON WITHOUT PROBLEMS. CALL LIGHT REMAINS WITHIN REACH.
[2017-03-01 07:30] LABS: BASOPHILS 0.1 % (0-2); EOSINOPHILS 1.9 % (0-7); HEMATOCRIT 25.8 % (36.0-48.0); HEMOGLOBIN 8.6 g/dL (12-16); LYMPHOCYTES 5.9 % (15-50); MCH 30.9 pg (26.0-34.0); MCHC 33.3 g/dL (31.0-37.0); MCV 92.8 fL (80.0-100.0); MEAN PLATELET VOLUME 9.2 fL (7.4-10.4); MONOCYTES 11.7 % (2-11); NEUTROPHILS 79.4 % (40-80); PLATELET COUNT 218 10x3/uL (130-400); RBC 2.78 10x6/uL (4.00-5.40); RDW 14.9 % (11.5-14.5); WBC 14.8 10x3/uL (4.8-10.8)
[2017-03-01 07:52] LABS: ANION GAP 9.4 mmol/L (8-16); CALCIUM 7.8 mg/dL (8.5-10.1); CARBON DIOXIDE 28.6 mmol/L (21.0-32.0); CREATININE - SERUM 1.5 mg/dL (0.6-1.3)
--- NOTE | 2017-03-01 08:00 | NUR ---
DRSG INTACT TO LT HIP.CL IN REACH.
[2017-03-01 09:11] VITALS: BP 142/61
--- NOTE | 2017-03-01 19:30 | NUR ---
PT. IN BED WITH HOB UP FOR COMFORT AND VISITING WITH FEMALE FRIEND. ASSESSMENT COMPLETED. NO VOICED NEEDS AT THIS TIME BUT PT. REQUESTING PAIN PILL WITH NIGHT TIME MEDS. PT. REQUESTED THAT SCD'S BE PLACED AT BEDTIME ALSO. CALL LIGHT REMAINS WITHIN REACH.
--- NOTE | 2017-03-01 23:25 | NUR ---
PT. IN BED WITH HOB AND FOB ELEVATED FOR COMFORT. EYES CLOSED AND RESP. DEEP AND EVEN WITH CALL LIGHT WITHIN REACH.
[2017-03-02 02:51] VITALS: BP 128/76
--- NOTE | 2017-03-02 03:12 | NUR ---
PT. IN BED WITH HOB AND FOB ELEVATED FOR COMFORT. PILLOW UNDER LLE ALSO. EYES CLOSED AND RESP. EVEN. CALL LIGHT REMAINS WITHIN REACH.
--- NOTE | 2017-03-02 08:00 | NUR ---
SHIFT ASSMT COMPLETED.DENIES NEEDS.LOISG LT HIP C/D/I.
--- NOTE | 2017-03-02 08:56 | RHP ---
PATIENT: YAEL BAGLEY MEDICAL RECORD: [id number] ACCOUNT: [id number] LOCATION:[id number] : 42 ADMISSION DATE: 02/26/17 REHABILITATION HISTORY AND PHYSICAL EXAMINATION POST ADMISSION PHYSICIAN EXAMINATION DATE OF ADMISSION: 02/26/2017 ADMITTING DIAGNOSIS: Status post bipolar endoprosthesis due to subcapital femoral neck fracture. HISTORY OF PRESENT ILLNESS: The patient is admitted to inpatient rehab status post left bipolar endoprosthesis due to a subcapital femoral neck fracture. She is a 76-year-old female who presented to the Emergency Room with left hip pain after tripping over a threshold and falling. She was found to have a subcapital femoral neck fracture. She had cardiac clearance and was taken off her anticoagulants prior to surgery. She underwent a bipolar endoprosthesis for displaced left femoral neck fracture on 01/23/2017. She has had some postop complications including a postop blood loss anemia with an H&H of 7.3 and 22.8, requiring transfusion of 2 units of packed red blood cells. She has been having some pain issues and also has been having to adjust medications, difficulty with ambulating with therapy. She recently moved from [place] to [place] with her significant other. She is completely independent with ADLs, mobility prior to this accident. She is currently requiring set up to max ADLs and moderate assist to total assist for mobility. She lives with her significant other and plans to return home and hopefully get back to her prior level of functioning. COMORBIDITIES: Include postop blood loss anemia, coronary artery disease status post coronary artery bypass grafting, hypertension, gastroesophageal reflux disease, leukemia, depression, fall, acute hip pain, UTI, leukocytosis, constipation, GI bleed and anemia. PAST MEDICAL HISTORY: Significant for hypertension, leukemia, which was chronic myelogenous leukemia, GI bleed, constipation, depression. PAST SURGICAL HISTORY: Includes hysterectomy, coronary artery bypass grafting and breast biopsy. ALLERGIES: ACETAMINOPHEN, AMLODIPINE, AND SHELLFISH. CURRENT MEDICATIONS: Include Zoloft 50 mg daily, Protonix 40 mg daily, metoprolol 50 mg daily, Zestril 20 mg daily, folic acid 1 mg daily, aspirin chewable 81 mg daily, MiraLax 17 g in 8 ounces of water daily. She is on Gleevec that she takes daily, OxyIR 10 mg q.4 hours p.r.n. pain, Nitrostat p.r.n. chest pain and Benadryl 25 mg q.h.s. p.r.n. HABITS: No alcohol or tobacco use. FAMILY HISTORY: Noncontributory. SOCIAL HISTORY: The patient once again hopes to return home with her significant other. REVIEW OF SYSTEMS: GENERAL: She denies weakness or fatigue. HISTORY AND PHYSICAL [id number] YAEL BAGLEY HEENT: Denies cold, cough, or congestion. CARDIOVASCULAR: Denies chest pain. PHYSICAL EXAMINATION: VITAL SIGNS: Stable, afebrile. GENERAL: Elderly female in no acute distress, alert upon exam. HEENT: Normocephalic, atraumatic. Mucosa is moist with no lymphadenopathy. LUNGS: Clear. HEART: Irregular rate and rhythm. ABDOMEN: Benign. EXTREMITIES: Consistent with hip surgery. NEUROLOGIC: Intact. LABORATORY DATA: Her white count 17.7, H&H 9.5 and 28.9. Her platelet count was noted to be 203. Sodium is 135, potassium 3.7, BUN and creatinine of 25 and 1.4 and blood sugar is 113. ASSESSMENT: This is a 76-year-old female patient who is admitted to rehab with a working diagnosis of status post bipolar endoprosthesis of her hip secondary to a fall. The patient has potential to make improvement and need at least 2 of the following multidisciplinary therapies including to, but not limited to physical, occupational, respiratory, speech, nutritional services, prosthetics and orthotics. Given her complex condition and risk for more complications, rehabilitation services cannot be provided at a lower level of care such as a long term facility. PLAN: 1. Admit to [facility] rehab for intensive inpatient therapy to include the following disciplines: A. Physical therapy to improve gait, all transfer skills and bed mobility to a modified independent level. B. Occupation therapy to improve activities of daily living to a modified independent level. C. Case management to assist with discharge planning and placement options. D. Nutrition to assist with nutritional needs. E. Rehabilitation nursing to assist in monitoring the patient's underlying conditions and to assist with any type of bowel or bladder management. 2. The patient's current medication and medical care will be continued. 3. The patient will be placed on standard fall precautions. 4. The patient's estimated length of stay is approximately 7-10 days. 5. We will watch her H&H closely and make any adjustments as needed. We will discuss with care team staff end of this week. TRANSINT:[id number] Voice Confirmation ID: [id number] DOCUMENT ID: [id number] SMITH notes whether there has been none or any medical/functional change since admission: - SMITH attests patient continues to be appropriate for IRF: - HISTORY AND PHYSICAL [id number] YAEL BAGLEY SCOTT MD at 0856 CC: [id number] DICTATION DATE: 02/27/17904 BOTTOM BLEACHER: 02/27/17 1004 ADM IN [facility] [address] [id number]
[2017-03-02 09:13] VITALS: BP 135/60
--- NOTE | 2017-03-02 19:45 | NUR ---
PT. IN BED LYING ON HER RIGHT SIDE WITH EYES CLOSED AND RESP. EVEN. PT. AWAKENS EASILY FOR ASSESSMENT. EXPLAINED NEED FOR URINE FOR UA TESTING. ASSISTED PT. TO BR AND URINE COLLECTED. ASSISTED PT. BACK TO BED, SCD'S RE-APPLIED, POSITIONED TO COMFORT AND CALL LIGHT WITHIN REACH. URINE TO LAB FOR PROCESSING.
[2017-03-02 20:31] LABS: AMORPHOUS SEDIMENT <1+ /lpf (NONE SEEN); APPEARANCE CLOUDY (CLEAR); BACTERIA MANY /hpf (NONE SEEN); BILIRUBIN NEGATIVE (NEGATIVE); COLOR YELLOW (YELLOW); GLUCOSE NEGATIVE (NEGATIVE); GRANULAR CAST RARE /lpf (NONE SEEN); KETONE NEGATIVE (NEGATIVE); LEUKOCYTE ESTERASE 2+ (NEGATIVE); MUCUS <1+ /lpf (NONE SEEN); NITRITE NEGATIVE (NEGATIVE); PROTEIN TRACE mg/dL (NEGATIVE); RED CELLS - URINE OCC /hpf (0-5); SPECIFIC GRAVITY 1.015 (1.005-1.020); UROBILINOGEN NORMAL (NORMAL); WHITE CELLS - URINE 25-50 /hpf (0-5)
[2017-03-02 22:47] VITALS: BP 138/56
--- NOTE | 2017-03-02 23:13 | NUR ---
PT. IN BED WITH HOB UP FOR COMFORT AND LYING ON HER RIGHT SIDE. EYES CLOSED AND RESP. DEEP AND EVEN. SCD'S ON AND CALL LIGHT IS WITHIN REACH.
--- NOTE | 2017-03-03 03:02 | NUR ---
PT. IN BED WITH HOB UP FOR COMFORT LYING ON HER RIGHT SIDE. EYES CLOSED AND RESP. EVEN. CALL LIGHT WITHIN REACH AND SCD'S REMAIN ON.
[2017-03-03 07:04] LABS: BASOPHILS 0.2 % (0-2); EOSINOPHILS 2.5 % (0-7); HEMATOCRIT 26.2 % (36.0-48.0); HEMOGLOBIN 8.5 g/dL (12-16); IMMATURE GRANULOCYTES 1.7 % (0-5); LYMPHOCYTES 5.6 % (15-50); MCH 30.2 pg (26.0-34.0); MCHC 32.4 g/dL (31.0-37.0); MCV 93.2 fL (80.0-100.0); MEAN PLATELET VOLUME 9.3 fL (7.4-10.4); MONOCYTES 10.1 % (2-11); NEUTROPHILS 79.9 % (40-80); RBC 2.81 10x6/uL (4.00-5.40); RDW 14.9 % (11.5-14.5); WBC 16.6 10x3/uL (4.8-10.8)
[2017-03-03 07:05] LABS: PLATELET COUNT 266 10x3/uL (130-400)
[2017-03-03 07:24] LABS: ANION GAP 10.6 mmol/L (8-16); CALCIUM 7.6 mg/dL (8.5-10.1); CARBON DIOXIDE 26.8 mmol/L (21.0-32.0); CREATININE - SERUM 1.4 mg/dL (0.6-1.3); POTASSIUM - SERUM 3.4 mmol/L (3.5-5.1)
--- NOTE | 2017-03-03 07:33 | NUR ---
RESTING QUIETLY IN BED CALL LIGHT IN REACH
[2017-03-03 10:18] VITALS: BP 128/53
--- NOTE | 2017-03-03 14:04 | NUR ---
RESTING QUIETLY IN BED. HAS PAIN MEDICATION AT HER REQUEST. PAIN MEDS EFFECTIVE. DSG INTACT TO LEFT HIP
--- NOTE | 2017-03-03 15:39 | NUR ---
Nutrition Follow Up: Pt is eating 63% meal avg on a regular diet. No BM since admit. Labs and meds reviewed. Rec continue current diet. RD following.
--- NOTE | 2017-03-03 18:29 | NUR ---
SITTING UP IN BED DRINKING COFFEE. CALL LIGHT IN REACH
[2017-03-03 19:30] VITALS: BP 139/58
--- NOTE | 2017-03-03 19:35 | NUR ---
PT IN BED WITH HOB UP FOR COMFORT. WATCHING TV. VISITING WITH ROOMMATE. ALERT & ORIENTED. NO O2. NO IV. LEFT HIP DRESSING C/D/I. SCD'S. BED IN LOWEST POSITION AND CALL LIGHT WITHIN REACH.
--- NOTE | 2017-03-03 23:35 | NUR ---
PT IN BED WITH HOB UP FOR COMFORT. EYES CLOSED. CHEST RISING AND FALLING. BED IN LOWEST POSITION AND CALL LIGHT WITHIN REACH.
--- NOTE | 2017-03-04 03:35 | NUR ---
PT IN BED WITH HOB UP FOR COMFORT. EYES CLOSED. RESPIRATIONS EVEN AND UNLABORED. BED IN LOWEST POSITION AND CALL LIGHT WITHIN REACH.
--- NOTE | 2017-03-04 03:45 | NUR ---
IN BED, RESTING QUIETLY, EYES CLOSED.
--- NOTE | 2017-03-04 06:06 | NUR ---
LEFT HIP BULK DRESSING CHANGED. VERY LITTLE DRAINAGE ON OLD DRESSING. ASEPTIC TECHNIQUE USED. PT TOLERATED PROCEDURE WELL.
--- NOTE | 2017-03-04 07:15 | NUR ---
RESTING IN BED QUIETLY. CALL LIGHT IN REACH
[2017-03-04 07:45] VITALS: BP 146/65
--- NOTE | 2017-03-04 13:48 | NUR ---
RESTING IN BED IN HER ROOM. BULKY DSG TO LEFT HIP STILL IN PLACE WITH NO DRAINAGE NOTED THROUGH DSG LAYERS. USES WALKER FOR AMBULATION ASST
--- NOTE | 2017-03-04 17:12 | NUR ---
SITTING UP IN BED USING CELL PHONE. DENIES NEEDS. CALL LIGHT IN REACH
[2017-03-04 19:15] VITALS: BP 128/50
--- NOTE | 2017-03-04 19:15 | NUR ---
PT IN BED WITH HOB UP FOR COMFORT. WATCHING TV. ALERT & ORIENTED. NO O2. NO IV. LEFT HIP DRESSING C/D/I. SCD'S. BED IN LOWEST POSITION AND CALL LIGHT WITHIN REACH.
--- NOTE | 2017-03-04 20:33 | NUR ---
LEFT HIP BULK DRESSING CHANGED. X2 DRAINAGE ON SPOTS AND X1 BLOOD SPOT ON OLD DRESSING. ASEPTIC TECHNIQUE USED. PT TOLERATED PROCEDURE WELL.
--- NOTE | 2017-03-05 00:30 | NUR ---
PT IN BED WITH HOB UP FOR COMFORT. EYES CLOSED. RESPIRATIONS EVEN AND UNLABORED. BED IN LOWEST POSITION AND CALL LIGHT WITHIN REACH.
--- NOTE | 2017-03-05 03:50 | NUR ---
PT RESTING QUIETLY, RESPIRATIONS REGULAR AND UNLABORED, NO S/S OF ACUTE DISTRESS.
--- NOTE | 2017-03-05 03:55 | NUR ---
PT RESTING QUIETLY, DENIES ANY NEEDS. NO S/S OF ACUTE DISTRESS.
[2017-03-05 07:53] VITALS: BP 145/63
--- NOTE | 2017-03-05 10:15 | NUR ---
SITTING UP IN BED WITH EYES CLOSED. DENIES PAIN AT PRESENT.
--- NOTE | 2017-03-05 13:56 | NUR ---
RESTING QUIETLY IN BED CALL LIGHT IN REACH
--- NOTE | 2017-03-05 18:01 | NUR ---
SITTING UPIN BED EATING SUPPER. DENIES NEEDS. CALL LIGHT IN REACH
--- NOTE | 2017-03-05 20:31 | NUR ---
PT. IN BED WITH HOB UP FOR COMFORT AND IS WATCHING TV. NO VOICED NEEDS AT THIS TIME AND SHE HAS HER CALL LIGHT WITHIN REACH. SCD'S ARE ON WITHOUT PROBLEMS.
--- NOTE | 2017-03-05 20:52 | NUR ---
LEFT HIP BULK DRESSING CHANGED. TOP OF OLD DRESSING SOILED IN BLOOD. BOTTOM AND MIDDLE PART OF DRESSING SOILED WITH YELLOW/GREEN DRAINAGE. ASEPTIC TECHNIQUE USED. PT TOLERATED PROCEDURE WELL.
[2017-03-05 20:57] VITALS: BP 146/56
--- NOTE | 2017-03-06 00:50 | NUR ---
PT IN BED WITH HOB UP FOR COMFORT. EYES CLOSED. CHEST RISING AND FALLING. BED IN LOWEST POSITION AND CALL LIGHT WITHIN REACH.
--- NOTE | 2017-03-06 04:30 | NUR ---
RESTING QUIETLY. BED IN LOWEST POSITION AND CALL LIGHT WITHIN REACH.
[2017-03-06 06:58] LABS: BASOPHILS 0.1 % (0-2); EOSINOPHILS 2.3 % (0-7); HEMATOCRIT 28.6 % (36.0-48.0); HEMOGLOBIN 9.1 g/dL (12-16); LYMPHOCYTES 6.4 % (15-50); MCH 30.3 pg (26.0-34.0); MCHC 31.8 g/dL (31.0-37.0); MCV 95.3 fL (80.0-100.0); MEAN PLATELET VOLUME 8.9 fL (7.4-10.4); MONOCYTES 7.7 % (2-11); NEUTROPHILS 81.5 % (40-80); RDW 15.2 % (11.5-14.5); WBC 13.8 10x3/uL (4.8-10.8)
[2017-03-06 07:19] LABS: ANION GAP 9.4 mmol/L (8-16); CALCIUM 7.6 mg/dL (8.5-10.1); CARBON DIOXIDE 28.5 mmol/L (21.0-32.0); CREATININE - SERUM 1.4 mg/dL (0.6-1.3); POTASSIUM - SERUM 3.9 mmol/L (3.5-5.1)
[2017-03-06 07:28] LABS: PLATELET COUNT 388 10x3/uL (130-400)
--- NOTE | 2017-03-06 08:00 | NUR ---
REVENUE CYCLE ADMINISTRATOR FROM OFFICE ROUNDING;REMOVED RAE FROM INCISION EXCEPT AT TOP OF INCISION STATED WAS STILL DRAINING.SMALL 4X4 DRSG APPLIED,STERI STRIPS APPLIED.SHIFT ASSMT COMPLETED.
--- NOTE | 2017-03-06 12:00 | NUR ---
SITTING UP IN BED EATING LUNCH.CL IN REACH.
--- NOTE | 2017-03-06 14:10 | NUR ---
UP OOB W/OT TO SHOWER.SMALL AMT OF DRAINAGE ON PANTS NOTED.
--- NOTE | 2017-03-06 20:15 | NUR ---
PT. IN BED WITH HOB UP FOR COMFORT WITH EYES CLOSED AND RESP. EVEN. PT. AWAKENS EASILY FOR ASSESSMENT. PT. DENIES ANY NEEDS EXCEPT TO USE THE RESTROOM. ASSISTED PT. TO AND FROM BATHROOM WITHOUT ANY PROBLEMS. SCD'S REAPPLIED AND PT. POSITIONED TO COMFORT WITH CALL LIGHT WITHIN REACH.
[2017-03-06 20:49] VITALS: BP 118/56
--- NOTE | 2017-03-06 23:01 | NUR ---
PT. IN BED WITH HOB UP FOR COMFORT WITH EYES CLOSED AND RESP. DEEP AND EVEN. SCD'S ON AND CALL LIGHT WITHIN REACH.
--- NOTE | 2017-03-07 03:00 | NUR ---
PT. IN BED WITH HOB UP FOR COMFORT. EYES CLOSED AND RESP. DEEP AND EVEN. PT. OVERHEARD ME TALKING/ASSISTING ROOMMATE TO BR. I ASKED PT. IF SHE NEEDED TO GO AND SHE SAID, "IT'S TOO LATE". ASKED IF SHE WAS WEARING A BRIEF AND SHE SAID YES. ASKED HER AGAIN IF SHE WANTED TO GO AND SHE SAID NO. SCD'S REMAIN ON AND PT'S CALL LIGHT IS WITHIN REACH.
--- NOTE | 2017-03-07 06:11 | NUR ---
PT. IN BED WITH HOB UP FOR COMFORT WITH EYES CLOSED AND RESP. DEEP AND EVEN. PT. AWAKENS EASILY FOR MORNING FSBS. PT. DENIES ANY NEEDS AT THIS TIME. CALL LIGHT WITHIN REACH.
[2017-03-07 08:00] VITALS: BP 127/70
--- NOTE | 2017-03-07 08:00 | NUR ---
SEE NN TIMED 1308 FOR AM SHIFT ASSMT ENTRY.
--- NOTE | 2017-03-07 12:00 | NUR ---
SITTING UP IN BED EATING LUNCH.
--- NOTE | 2017-03-07 13:08 | NUR ---
SHIFT ASSMT COMPLETED.DENIES NEEDS.AMB W/SBA W/WALKER.INCISION LEFT HIP INTACT WITH DRSG TO TOP PORTION INTACT WITH DRY BLOOD.DRSG REPLACED WITH NEW.BREAKFAST GIVEN.CL IN REACH.
--- NOTE | 2017-03-07 19:40 | NUR ---
PT LEAD FORMER LIGHT, PT UP TO BR WITH WC, GAIT STEADY, PT VOIDED BY SELF WITH NO DIFFICULTY, PT TO SINK, WASHES HANDS AND BRUSHES TEETH, PT REMOVES SCRUB PANTS, PT TO BED, DENIES FURTHER NEEDS AT THIS TIME, INFORMED PT THAT I WILL BE BACK IN A FEW MINUTES TO DO ASSESSMENT, PT VERBALIZES UNDERSTANDING
[2017-03-07 20:00] VITALS: BP 135/68
--- NOTE | 2017-03-07 20:00 | NUR ---
ASSESSMENT PER FLOW SHEET, VS OBTAINED, PT REPORT FLATUS, BM TODAY AND VOIDS WITH NO DIFFICULTY, SCD'S PLACED ON AND WORKING PROPERLY, PT DENIES NEEDS OR PAIN AT THIS TIME
--- NOTE | 2017-03-07 21:16 | NUR ---
PT RESTING WITH EYES CLOSED, AROUSES TO SOFT VERBAL STIMULATION, ADM 2100 MEDS PER MD ORDERS, SEE EMAR, WITH FRESH H20, PT DENIES NEEDS OR PAIN AT THIS TIME
--- NOTE | 2017-03-07 22:25 | NUR ---
PT RESTING WITH EYES CLOSED, RESP QUIET, NO DISTRESS NOTED, LEFT UNDISTURBED AT THIS TIME
--- NOTE | 2017-03-07 23:15 | NUR ---
PT COMMERCIAL TIRE SERVICE TECHNICIAN LIGHT, SCD'S REMOVED, PT UP TO BR WITH WALKER, THIS RN AT SIDE, PT VOIDED BY SELF WITH NO DIFFICULTY, PT BACK TO BED, SCD'S REAPPLIED AND WORKING PROPERLY, PT DENIES FURTHER NEEDS
--- NOTE | 2017-03-08 00:10 | NUR ---
PT RESTING WITH EYES CLOSED, RESP QUIET, NO DISTRESS NOTED, LEFT UNDISTURBED AT THIS TIME
--- NOTE | 2017-03-08 02:00 | NUR ---
PT RESTING WITH EYES CLOSED, RESP QUIET, NO DISTRESS NOTED, LEFT UNDISTURBED AT THIS TIME
--- NOTE | 2017-03-08 03:38 | NUR ---
PT MILLER HELPER DISTILLERY LIGHT, PT UP TO BR WITH WALKER, PT VOIDED BY SELF WITH NO DIFFICULTY, PT SLIGHTLY INCONTINENT, PINK PAD CHANGED, PT CHANGED ADULT BRIEFS, PT BACK TO BED, SCD'S RECONNECTED AND WORKING PROPERLY, PT C/O LEFT HIP PAIN, ADM OXY IR PER MD ORDERS, SEE EMAR, WITH FRESH H20, PT DENIES FURTHER NEEDS
--- NOTE | 2017-03-08 04:40 | NUR ---
PT RESTING WITH EYES CLOSED, RESP QUIET, NO DISTRESS NOTED, LEFT UNDISTURBED AT THIS TIME
--- NOTE | 2017-03-08 05:48 | NUR ---
PT SHAREPOINT SOLUTIONS DEVELOPER LIGHT, SCD'S DISCONNECTED, PT UP TO BR WITH WALKER, VOIDED BY SELF WITH NO DIFFICULTY, PT BACK TO BED, SCD'S RECONNECTED AND WORKING PROPERLY, ADM 0600 MED PO PER MD ORDERS, PT DENIES FURTHER NEEDS OR PAIN
[2017-03-08 06:13] LABS: BASOPHILS 0.2 % (0-2); EOSINOPHILS 2.2 % (0-7); HEMATOCRIT 29.8 % (36.0-48.0); HEMOGLOBIN 9.4 g/dL (12-16); IMMATURE GRANULOCYTES 1.5 % (0-5); LYMPHOCYTES 7.5 % (15-50); MCH 30.5 pg (26.0-34.0); MCHC 31.5 g/dL (31.0-37.0); MCV 96.8 fL (80.0-100.0); MEAN PLATELET VOLUME 9.2 fL (7.4-10.4); NEUTROPHILS 82.6 % (40-80); RBC 3.08 10x6/uL (4.00-5.40); RDW 15.7 % (11.5-14.5); WBC 13.5 10x3/uL (4.8-10.8)
[2017-03-08 06:22] LABS: PLATELET COUNT 470 10x3/uL (130-400)
--- NOTE | 2017-03-08 06:45 | NUR ---
PT AWAKE, DENIES NEEDS OR PAIN AT THIS TIME
--- NOTE | 2017-03-08 07:00 | NUR ---
SHIFT REPORT TO DAY SHIFT
--- NOTE | 2017-03-08 07:05 | NUR ---
RESTING QUIETLY IN BED CALL LIGHT IN REACH
[2017-03-08 07:12] LABS: ANION GAP 8.8 mmol/L (8-16); CALCIUM 7.9 mg/dL (8.5-10.1); CARBON DIOXIDE 29.5 mmol/L (21.0-32.0); CREATININE - SERUM 1.4 mg/dL (0.6-1.3); POTASSIUM - SERUM 4.3 mmol/L (3.5-5.1)
[2017-03-08 11:42] VITALS: BP 119/53
--- NOTE | 2017-03-08 11:56 | NUR ---
USES WALKER FOR AMBULATION ASST. ALERT AND ORIENTED. DENIES PAIN AT PRESENT.
--- NOTE | 2017-03-08 14:12 | NUR ---
CARE TEAM MEETING: PATIENT TENATIVE DISCHARGE DATE IS 03/09/17. WILL CONTINUE TO FOLLOW WITH PATIENT
--- NOTE | 2017-03-08 15:13 | NUR ---
PATIENT DISCHARGING HOME WITH FAMILY ON 03/09/17. [facility] AT HOME WILL FOLLOW WITH PATIENT. [facility] WILL DELIVER A ROLLING WALKER TO PATIENT. DR. PITTMAN/DAPHNIE 03/21/17 @ 2:00, DR. FLORES/VICTORIANO 03/28/17 @ 3:30. PATIENT CHOICE FORM FOR HOME HEALTH AND [facility] FORM SIGNED, EXPLAINED AND FILED IN CHART. WILL CONTINUE TO FOLLOW WITH PATIENT UNTIL DISCHARGED
--- NOTE | 2017-03-08 16:52 | NUR ---
LAYING IN BED TALKING TO . DENIES NEEDS OR C/O.
[2017-03-08 18:52] VITALS: BP 134/63
--- NOTE | 2017-03-08 18:52 | NUR ---
LAYING IN BED TALKING TO . DENIES PAIN OR NEEDS
--- NOTE | 2017-03-08 20:50 | NUR ---
PT SIT UP IN BED, STATE SHE IS EXCITED, SHE WILL BE DISCHARGED HOME TOMORROW.
--- NOTE | 2017-03-08 23:55 | NUR ---
PT REST IN BED WITH EYE CLOSE, BED LOW, CALL LIGHT WITHIN REACH.
--- NOTE | 2017-03-09 02:25 | NUR ---
RESTING QUIETLY, EYES CLOSED.
--- NOTE | 2017-03-09 08:00 | NUR ---
SITTING UP IN BED EATING BREAKFAST. DENIES PAIN OR NEEDS.
--- NOTE | 2017-03-09 11:45 | NUR ---
D/C HOME WITH ALL PERSONAL BELONGINGS. TOOK PT HOME. RAE TAKEN OUT PRIOR TO D/C STERI STRIPS PLACED TO TOP OF INCISION. NO S/S INFECTION AND NO DRAINAGE NOTED FROM INCISION. INSTRUCTED PT TO MONITOR FOR S/S INFECTION (DRAINAGE, PAIN, SWELLING, FEVER). PRESCRIPTION CALLED INTO [facility] ON [address] FOR KEFLEX 500MG X10 MORE DOSES TO COMPLETE THE 30 DOSES ORDERED. SHE DENIES NEEDING OTHER MEDS CALLED IN. GAVE PT PRESCRIPTION FOR PAIN MEDICATION ALSO.
[2017-03-09 12:26] VITALS: BP 135/52
== END 2017-03-09 10:30 | disposition home health service (06) | DRG 560 ==
LOC: D.REHAB 13:48
PROVIDERS: Orthopaedic Surgery; ADMIT Emergency Medicine
DX: S72.012D Unspecified intracapsular fracture of left femur, subsequent encounter for closed fracture with routine healing (principal); D62 Acute posthemorrhagic anemia; C95.90 Leukemia, unspecified not having achieved remission; N39.0 Urinary tract infection, site not specified; Z95.1 Presence of aortocoronary bypass graft; I10 Essential (primary) hypertension; K21.9 Gastro-esophageal reflux disease without esophagitis; F32.9 Major depressive disorder, single episode, unspecified; W19.XXXD Unspecified fall, subsequent encounter

== ENCOUNTER 2017-05-17 08:13 | Outpatient (CLI) | payer MEDICARE, BC ==
[~2017-05-17] VITALS: Ht 160 cm; Wt 57.3 kg
--- NOTE | ~2017-05-17 | OP ---
PATIENT NAME: YAEL BAGLEY MEDICAL RECORD: [id number] :42 LOCATION:[facility] ADMISSION DATE: SURGEON: ELLI FELIPE MD DATE OF OPERATION: 05/17/2017 PROCEDURES: 1. Left heart catheterization. 2. Selective coronary angiography. 3. Left ventriculogram. 4. Vein graft angiography. 5. ALMAGUER angiography. 6. Intravascular ultrasound. INDICATION: Chest pain compatible with angina. PROCEDURE IN DETAIL: After informed consent was obtained and after a detailed explanation of risks, benefits as well as alternative therapies, the patient elected to proceed with angiogram and heart catheterization. The right femoral area was prepped and draped in normal sterile fashion. Right femoral artery was cannulated via modified Seldinger technique with placement of a right 6-Mongolian sheath. All catheters exchanged through this sheath. FINDINGS: The left ventriculogram was performed in standard 30-degree MOYER view, reveals good cardiac wall motion throughout all segments. Overall ejection fraction estimated at 50%. SELECTIVE CORONARY ANGIOGRAPHY: 1. Left main is with no significant angiographic disease. 2. Left anterior descending has a 90% stenosis in the ____ mid vessel. 3. ALMAGUER to the distal LAD is widely patent. 4. Left circumflex has 80% stenosis in the proximal vessel. 5. Vein graft to the distal circumflex is widely patent. 6. The right coronary has moderate irregularities, but no flow-limiting stenosis. Intravascular ultrasound reveals that there is no stenosis greater than 40%. OVERALL IMPRESSION: Wide patency of the two bypass grafts. No disease elsewise and normal ejection fraction. Continue medical management of the coronary artery disease and cardiac risk factors. TRANSINT:[id number] Voice Confirmation ID: [id number] DOCUMENT ID: [id number] ELLI FELIPE MD CC: [id number] DICTATION DATE: 05/17/17 1123 EMAIL MARKETING ASSISTANT: 05/17/[address] [facility] [address] [place] [address]
--- NOTE | ~2017-05-17 | HEMODYNAMI ---
PATIENT:YAEL BAGLEY MEDICAL RECORD: [id number] : 44 LOCATION:[facility] ADMISSION DATE: 05/17/17 Generatedon:05/17/201711:25 Patient name: YAEL BAGLEY Patient #: [id number] SSN: : 1 10/23/1939 Date of study: 05/17/2017 Page: Of Hemodynamic Procedure Report Patient Data Patient Demographics Procedure consent was obtained First Name: YAEL Gender: Female Last Name: YUDI : 1940 Middle Initial: M Age: 76 year(s) Patient #: [id number] Race: Unknown Additional ID: [id number] Contact details [address]: [address] [place] [address] ROAD State: [place] City: [place] Zip code: [address] Past Medical History Allergies Allergen Reaction Date Comments Reported Shellfish 05/17/2017 Admission Admission Data Admission Date: 05/17/2017 Admission Time: 8:13 Height (in.): 63 BSA: 1.59 (m2) Height (cm.): 160.02 BMI: 22.32 (kg/m2) Weight (lbs.): 126 Weight (kg.): 57.15 Lab Results Lab Result Date: 05/17/2017 Lab Result Time: 0:00 Biochemistry Name Units Result Min Max Creatinine mg/dl 1.7 --(----)-* 0.6 1.3 CBC Name Units Result Min Max Hemoglobin g/dl 13.1 -*(----)-- 13.5 17.5 Procedure Procedure Types Cath Procedure Diagnostic Procedure LHC LHC w/Coronaries w/Grafts FFR/IVUS Intra-Coronary IVUS Initial Miscellaneous Procedures Moderate Sedation up to 30 minutes Procedure Description Procedure Date Procedure Date: 05/17/2017 Procedure Start Time: 11:08 Procedure End Time: 11:25 Procedure Staff Name Function Catracho Stanley MD Performing Physician Cynthia Cristobal RT Scrub Miguel Kramer RT Scrub Sigifredo River RN Nurse Anabell Kaur RT Monitor Procedure Data Cath Procedure Fluoroscopy Diagnostic fluoroscopy Total fluoroscopy Time: 3 time: 3 min min Diagnostic fluoroscopy Total fluoroscopy dose: 309 dose: 309 mGy mGy Contrast Material Contrast Material Type Amount (ml) Isovue 300 73 Entry Location Entry Primary Successful Side Size Upsize Upsize Entry Closure Succes sful Closure Location (Fr) 1 (Fr) 2 (Fr) Remarks Device Remarks Femoral Right 5 Fr 6 Fr artery Short Estimated blood loss: 5 ml Diagnostic catheters Device Type Used For End Catheter Placement Cordis 5Fr Pigtail LV Angiography Catheter (MP) Cordis 5Fr JL 4.0 Left Coronary Catheter (MP) Angiography Cordis 5Fr 3DRC Catheter Right Coronary (MP) Angiography Cordis 5Fr 3DRC Catheter Internal mammary (MP) arteriography Cordis 5Fr 3DRC Catheter Right Coronary (MP) Angiography Cordis 5Fr 3DRC Catheter SVG Angiography (MP) Procedure Complications No complications Procedure Medications Medication Administration Route Dosage Oxygen NC 2 l/min 0.9% NaCl I.V. 100 ml/hr Heparin Flush Bag added to field 2 bags (1000units/500ml NS) Versed I.V. 1 mg Fentanyl I.V. 50 mcg Fentanyl I.V. 25 mcg Fentanyl I.V. 25 mcg Hemodynamics Rest BSA: 1.59 (m2) HGB: 13.1 (g/dl) O2 Consumption: Estimated: 151.18 (ml/min) O2 Co nsumption indexed: Estimated:95.08 (ml/min/m) Heart Rate: 80 (bpm) Snapshots Pre Cath Intra NCS Post Cath Vital Signs Time Heart Resp SPO2 etCO2 [id number] NIBP (mmHg) Rhythm Pain Sedatio n Rate (ipm) (%) (mmHg) (mmHg) Status Level (bpm) 11:02:22 80 18 98 0 0 203/107(163) NSR 0 (11) 10(A) , No pain 11:06:51 74 17 99 0 0 194/99(148) NSR 0 (11) 10(A) , No pain 11:11:15 77 16 97 0 0 201/96(159) NSR 0 (11) 9(A) , No pain 11:15:43 76 25 98 0 0 198/99(128) NSR 0 (11) 9(A) , No pain 11:20:10 77 18 99 0 0 192/100(167) NSR 0 (11) 10(A) , No pain 11:24:34 73 13 99 0 0 184/97(153) NSR 0 (11) 10(A) , No pain Medications Time Medication Route Dose Verified Delivered Reason Notes Effec tiveness by by 10:57:34 Oxygen NC 2 Sigifredo Sigifredo Per l/min Aleta River physician RN RN 10:58:03 0.9% NaCl I.V. 100 Sigifredo Sigifredo Per ml/hr Aleta River physician RN RN 10:58:28 Heparin Flush added 2 Sigifredo Sigifredo used for Bag to bags Lorigan Aleta procedure (1000units/500ml field RN RN NS) 11:02:11 Versed I.V. 1 mg Sigifredo Sigifredo for Lorigan Lorigan sedation RN RN 11:02:34 Fentanyl I.V. 50 Sigifredo Sigifredo for mcg Lorigan Lorigan sedation RN RN 11:08:52 Fentanyl I.V. 25 Sigifredo Sigifredo for mcg Lorigan Lorigan sedation RN RN 11:18:00 Fentanyl I.V. 25 Sigifredo Sigifredo for mcg Lorigan Lorigan sedation RN hosiery mater Log Time Note 10:14:20 Lab Result : Creatinine 1.7 mg/dl 10:14:20 Lab Result : Hemoglobin 13.1 g/dl 10:14:35 Patient Height : 63 cm 10:14:37 Patient Weight : 126 kg 10:15:18 ACC The patient was administered the following blood thiners within the last 24 hours: ACCPlavix 10:15:21 Is patient on blood thinner?Yes 10:15:43 H&P Date Dictated: 05/11/2017 Within 30 days and on chart., H&P Addendum completed by physician on day of procedure. (MUST COMPLETE FOR ALL OUTPATIENTS). 10:15:53 Patient allergic to Shellfish 10:15:59 Is the patient allergic to Iodine/contrast media? Yes. 10:16:09 Was the patient premedicated? Yes 10:30:02 Miguel BACH(R) sent for patient. Start room use. 10:39:03 Time tracking: Regular hours 10:39:08 Plan of Care:Hemodynamics will remain stable., Cardiac rhythm will remain stable., Comfort level will be maintained., Respiratory function will remain adequate., Patient/ family verbilizes understanding of procedure., Procedure tolerated without complication., Recovers from procedure without complications.. 10:55:50 Patient received from Pre/Post Procedure Room to CCL 1 Alert and oriented. Tansferred to table in Supine position. 10:55:51 Warm blankets applied, and migel hugger turned on for patient comfort. 10:55:52 Correct patient and procedure confirmed by team. 10:55:53 Vital chart was started 10:55:54 ECG and BP/O2 sat monitors applied to patient. 10:55:56 Signed procedure consent form obtained from patient. 10:57:34 Oxygen 2 l/min NC was administered by Sigifredo River RN; Per physician; 10:58:03 0.9% NaCl 100 ml/hr I.V. was administered by Sigifredo River RN; Per physician; 10:58:28 Heparin Flush Bag (1000units/500ml NS) 2 bags added to field was administered by Sigifredo River RN; used for procedure; 10:58:37 Baseline sample Acquired. 10:58:47 Rhythm: sinus rhythm 10:58:49 Full Disclosure recording started 10:58:51 Pre-procedure instructions explained to patient. 10:58:51 Pre-op teaching completed and patient verbalized understanding. 10:58:57 Family in waiting room. 10:58:58 Patient NPO since Midnight. 10:59:01 Patient diabetic? No. 10:59:06 Previous problem with sedation/anesthesia? No ? 10:59:07 Snore? No 10:59:08 Sleep apnea? No 10:59:09 Deviated septum? No 10:59:10 Opens mouth fully? Yes 10:59:17 Sticks out tongue? Yes 10:59:19 Airway obstruction? No ? 10:59:20 Dentures? No ? 11:00:00 Pre procedure: right dorsailis pedis pulse 2+ Normal; easily identifiable; not easily obliterated 11:00:02 Patient pain scale 0/10 ?. 11:00:07 IV patent on arrival in right hand with 0.9% NaCl at O. 11:00:10 Lab results completed and on chart. 11:00:14 Right groin area was prepped with chlora-prep and draped in sterile fashion 11:00:16 Alarms reviewed by RAve N. 11:00:16 Sharps counted by scrub and verified by R.N. 11:00:19 Use device set Femoral Dx 11:00:20 Acist Syringe opened to sterile field. 11:00:20 Bag Decanter opened to sterile field. 11:00:21 Medline Cath Pack opened to sterile field. 11:00:21 St Gordo 260cm J .035 wire opened to sterile field. 11:00:26 Diagnostic Infinity 5Fr Multipack catheter opened to sterile field. 11:00:27 Acist Manifold opened to sterile field. 11:00:28 Tegaderm 4 x 4 opened to sterile field. 11:00:28 Acist Hand Control opened to sterile field. 11:00:38 Merit Prelude Femoral Sheath (NO COST SUPPLY) opened to sterile field. 11:: Final Timeout: patient, procedure, and site verified with staff and physician. All members of the team are in agreement. 11:01:03 Right groin site verified by team. 11:01:14 Physical assessment completed. ASA score P 2 - A patient with mild systemic disease as per Catracho Stanley MD. 11:01:17 Sedation plan: IV Moderate Sedation Versed, Fentanyl 11::11 Versed 1 mg I.V. was administered by Sigifredo River RN; for sedation; 11::34 Fentanyl 50 mcg I.V. was administered by Sigifreod River RN; for sedation; 11:03:54 Zero performed for pressure channel P1 11:07:55 Procedure started. 11:08:00 Local anesthetic to right femoral artery with Lidocaine 2% by Catracho Stanley MD.INITIAL ACCESS ONLY 11:08:52 Fentanyl 25 mcg I.V. was administered by Sigifredo River RN; for sedation; 11:09:48 A 5 Fr sheath was inserted into the Right Femoral artery 11::56 A Cordis 5Fr Pigtail Catheter (MP) was advanced over the wire and used for LV Angiography. 11:09:57 LV gram done using MOYER 11::01 EF : 50 % 11::07 Injector settings: Ml/sec: 10, Volume: 20, 11:10:14 Catheter removed. 11:10:37 A Cordis 5Fr JL 4.0 Catheter (MP) was advanced over the wire and used for Left Coronary Angiography. 11:11:55 Catheter removed. 11:12:01 A Cordis 5Fr 3DRC Catheter (MP) was advanced over the wire and used for Right Coronary Angiography. 11:12:59 A Cordis 5Fr 3DRC Catheter (MP) was advanced over the wire and used for Internal mammary arteriography.to LAD 11:14:04 A Cordis 5Fr 3DRC Catheter (MP) was advanced over the wire and used for Right Coronary Angiography. 11:14:27 A Cordis 5Fr 3DRC Catheter (MP) was advanced over the wire and used for SVG Angiography.to Circ 11:14:28 Catheter removed. 11:15:32 [place] Steens [place] IVUS Catheter opened to sterile field. 11:15:34 Berrios Whisper J 300cm 0.014 guide wire opened to sterile field. 11:15:37 Terumo 6Fr [place] Sheath opened to sterile field. 11:15:38 [place] Power BasixCompak Inflation Kit opened to sterile field. 11:16:29 Cegaltronic Launcher 6Fr 3DRC guide catheter opened to sterile field. 11:17:20 Sheath upsized to a 6 Fr Short. 11:17:25 6 Fr 3DRC guide catheter was inserted over the wire 11:17:29 Whisper wire advanced. 11:17:36 IVUS catheter advanced over wire. 11:17:39 IVUS pass to RCA lesion performed. 11:18:00 Fentanyl 25 mcg I.V. was administered by Sigifredo River RN; for sedation; 11:20:52 IVUS catheter removed over wire. 11:20:58 Wire removed. 11:20:59 Guide catheter removed. 11:21:02 Procedure ended.(Physican Out) 11:21:12 Fluoroscopy time 03.00 minutes. 11:21:15 Fluoroscopy dose: 309 mGy 11:21:15 Flurop Dose total: 309 11:21:18 Contrast amount:Isovue 300 73ml. 11:21:20 Sharps counted by scrub and verified by R.N. 11:21:22 Insertion/operative site no bleeding no hematoma. 11:21:26 Post-op/insertion site Right Femoral artery dressed using a 4 x 4 and Tegaderm. 11:21:33 Post right femoral artery:stable, clean and dry 11:21:34 Post Procedure Pulses reassessed and unchanged 11:21:38 Post-procedure physical assessment completed. ASA score P 2 - A patient with mild systemic disease as per Catracho Stanley MD. 11:21:40 Post procedure rhythm: unchanged. 11:21:42 Estimated blood loss: 5 ml 11:21:43 Post procedure instruction explained to patient.Patient verbalizes understanding. 11:21:44 Patient needs reinforcement of post procedure teaching. 11:21:51 Procedure type changed to Cath procedure, Diagnostic procedure, LHC, LHC w/Coronaries w/Grafts, FFR/IVUS, Intra-Coronary IVUS Initial, Miscellaneous Procedures, Moderate Sedation up to 30 minutes 11:21:58 Procedure Complication : No complications 11:22:00 See physician's report for complete and final results. 11:22:10 Cordis 6Fr Exoseal opened to sterile field. 11:23:29 Procedure and supply charges have been captured, reviewed, submitted and are correct. 11:24:49 Vital chart was stopped 11:24:51 Report given to Pre/Post Procedure Room. 11:24:54 Patient transfered to Pre/Post Procedure Room with Stretcher. 11:25:01 Procedure ended. 11:25:01 Full Disclosure recording stopped 11:25:04 End room use (Document Last) Device Usage Item Name Manufacture Quantity Catalog Hospital Part Current Minimal L ot# / Number Charge Number Stock Stock Serial# Code Acist Acist 1 [id number] 000626 [id number] [id number] 20 Syringe [employer] Inc Bag Microtek 1 2002S [id number] 33941 773223 5 Decanter [employer] Inc. Medline Cardinal 1 [id number] 172668 29461 0790[address] [facility] St Gordo 1 022965 757531 483859 031091 30 260cm J .035 wire Diagnostic Cardinal 1 [id number] 776581 18929 509329 30 Startup Weekend Health 5Fr Multipack catheter Acist Acist 1 43327 842145 401395 988071 5 Pictrition App [employer] Inc Tegaderm 4 3M 1 1626W 647117 977159 741600 5 x 4 Acist Hand Acist 1 59341 284592 796781 930409 5 Conekta Systems Inc Merit Merit 1 057280 472829 5 Prelude Medical Femoral Sheath (NO COST SUPPLY) Cordis 5Fr Cardinal 1 [id number] 5 Pigtail Health Catheter (MP) Cordis 5Fr Cardinal 1 [id number] 5 JL 4.0 Health Catheter (MP) Cordis 5Fr Cardinal 1 155102 5 3DRC Health Catheter (MP) [place] 1 [id number] 526186 315875 858500 8 Steens Eag[place]e IVUS Catheter Berrios Berrios 1 [id number] 294169 872008 584278 5 Whisper J Vascular 300cm 0.014 guide wire Terumo 6Fr Terumo 1 [id number] 257716 494782 827464 40 [place] Sheath Merit Merit 1 [id number] 975578 947386 298683 15 [facility] Inflation Kit Medtronic Medtronic 1 [id number] 816346 979406 244351 1 Launcher 6Fr 3DRC guide catheter Cordis 6Fr Cardinal 1 [id number] 331527 367308 771228 10 [facility] Health Signature Audit [place] Stage Time Signature Unsigned Intra-Procedure 05/17/2017 Anabell 11:25:14 AM Counts RT(R) Signatures Monitor : Anabell Signature : Counts RT Date : Time : [place] [id number] [place] [address]
[~2017-05-17 08:13] MED LIST changes: +OXYCODONE HCL10 MG PO
[2017-05-17] MEDS ORDERED: PLAVIX75 MG PO (09:32)
[2017-05-17 09:38] LABS: BASOPHILS 0 % (0-2); EOSINOPHILS 0 % (0-7); HEMATOCRIT 39.1 % (36.0-48.0); HEMOGLOBIN 13.1 g/dL (12-16); IMMATURE GRANULOCYTES 0.2 % (0-5); LYMPHOCYTES 7.2 % (15-50); MCH 30.9 pg (26.0-34.0); MCHC 33.5 g/dL (31.0-37.0); MCV 92.2 fL (80.0-100.0); MEAN PLATELET VOLUME 10.6 fL (7.4-10.4); MONOCYTES 0.7 % (2-11); NEUTROPHILS 91.9 % (40-80); RBC 4.24 10x6/uL (4.00-5.40); RDW 14.6 % (11.5-14.5); WBC 13.2 10x3/uL (4.8-10.8)
[2017-05-17 09:43] VITALS: BP 186/99; Ht 160 cm; Wt 57.3 kg
[2017-05-17 09:44] LABS: PLATELET COUNT 224 10x3/uL (130-400)
[2017-05-17 10:03] LABS: ANION GAP 15.8 mmol/L (8-16); CALCIUM 8.9 mg/dL (8.5-10.1); CREATININE - SERUM 1.7 mg/dL (0.6-1.3); POTASSIUM - SERUM 4.8 mmol/L (3.5-5.1)
--- NOTE | 2017-05-17 11:46 | NUR ---
RIGHT GROIN CDI, NO HEMATOMA OR BLEEDING AT SITE, SOFT TO TOUCH. DR FELIPE ROUNDS- FAMILY NOT IN FACILITY
--- NOTE | 2017-05-17 12:15 | NUR ---
RIGHT GROIN CDI, NO HEMATOMA OR BLEEDING, SOFT TO TOUCH
== END 2017-05-17 13:45 | disposition home or self-care (01) ==
LOC: D.CATH 08:13
PROVIDERS: Internal Medicine Interventional Cardiology
DX: I25.119 Atherosclerotic heart disease of native coronary artery with unspecified angina pectoris (principal); Z95.1 Presence of aortocoronary bypass graft; I10 Essential (primary) hypertension; E78.5 Hyperlipidemia, unspecified; Z01.810 Encounter for preprocedural cardiovascular examination; Z01.812 Encounter for preprocedural laboratory examination

== ENCOUNTER 2018-07-16 08:00 | Outpatient (CLI) | payer MEDICARE, BC ==
[2017-05-17 09:43] VITALS: BMI 22.3
[~2018-07-16 08:00] MED LIST changes: +PLAVIX75 MG PO
== END 2018-07-16 09:00 | disposition home or self-care (01) ==
LOC: D.MAMMO 08:00
DX: Z12.31 Encounter for screening mammogram for malignant neoplasm of breast (principal)

== ENCOUNTER → 2018-11-01 11:06 | Outpatient (CLI) | payer MEDICARE, BC ==
[2017-05-17 09:43] VITALS: BMI 22.3
== END | disposition home or self-care (01) ==
LOC: D.RT 11:00
DX: R06.02 Shortness of breath (principal)

== ENCOUNTER → 2020-11-20 13:27 | Outpatient (CLI) | payer MEDICARE, BC ==
[2017-05-17 09:43] VITALS: BMI 22.3
== END | disposition home or self-care (01) ==
LOC: D.US 10-19 08:30
DX: R09.89 Other specified symptoms and signs involving the circulatory and respiratory systems (principal); I65.29 Occlusion and stenosis of unspecified carotid artery

== ENCOUNTER → 2020-12-04 10:09 | Outpatient (CLI) | payer MEDICARE, BC ==
[2017-05-17 09:43] VITALS: BMI 22.3
== END | disposition home or self-care (01) ==
LOC: D.US 10:09
DX: I65.29 Occlusion and stenosis of unspecified carotid artery (principal); R09.89 Other specified symptoms and signs involving the circulatory and respiratory systems